=== PATIENT | male | born 1990 | race Caucasian/White ===

== ENCOUNTER 2017-11-23 20:26 | Emergency (ER) | payer SELFPAY ==
[~2017-11-23] VITALS: Ht 188 cm; Wt 68.2 kg
[2017-11-23 20:39] VITALS: BP 125/79; TEMP 97.8
[2017-11-23] MEDS ORDERED: CIPRODEX OT (21:44)
[2017-11-23 22:13] VITALS: PULSE 71
== END 2017-11-23 22:20 | disposition home or self-care (01) ==
LOC: COL.ER 20:26
DX: H60.91 Unspecified otitis externa, right ear (principal); F17.290 Nicotine dependence, other tobacco product, uncomplicated

== ENCOUNTER 2018-02-04 16:47 | Emergency (ER) | payer SELFPAY ==
[~2018-02-04] VITALS: Ht 185.4 cm; Wt 68.2 kg
[~2018-02-04 16:47] MED LIST: CIPRODEX OT
[2018-02-04 16:55] VITALS: BP 119/85; TEMP 97.8
[2018-02-04] MEDS ORDERED: ULTRAM 50MG TAB50 MG PO (17:47)
[2018-02-04 18:09] VITALS: PULSE 84
== END 2018-02-04 18:25 | disposition home or self-care (01) ==
LOC: COL.ER 16:47
DX: S43.52XA Sprain of left acromioclavicular joint, initial encounter (principal); W19.XXXA Unspecified fall, initial encounter; Y92.009 Unspecified place in unspecified non-institutional (private) residence as the place of occurrence of the external cause

== ENCOUNTER 2018-03-09 12:48 | Emergency (ER) | payer SELFPAY ==
[~2018-03-09] VITALS: Ht 180.3 cm; Wt 58.6 kg
[~2018-03-09 12:48] MED LIST changes: +ULTRAM 50MG TAB50 MG PO
[2018-03-09 12:52] VITALS: BP 113/79; TEMP 97.4
[2018-03-09] MEDS ORDERED: PREDNISONE20 MG PO (15:14)
[2018-03-09] MEDS ORDERED: ATARAX 25MG25 MG/TAB PO (15:15)
[2018-03-09 15:34] VITALS: PULSE 84
== END 2018-03-09 15:35 | disposition home or self-care (01) ==
LOC: COL.ER 12:48
DX: R21 Rash and other nonspecific skin eruption (principal); F17.210 Nicotine dependence, cigarettes, uncomplicated; Z96.22 Myringotomy tube(s) status
CPT/HCPCS: J7512

== ENCOUNTER 2018-03-11 22:55 | Emergency (ER) | payer SELFPAY ==
[~2018-03-11] VITALS: Ht 185.4 cm; Wt 63.6 kg
[~2018-03-11 22:55] MED LIST changes: +ATARAX 25MG25 MG/TAB PO; +PREDNISONE20 MG PO
[2018-03-11 23:01] VITALS: TEMP 97.3
[2018-03-12 00:17] LABS: BASO % 0.3 % (0.0-2.0); EOS # 0.1 (0.0-0.7); EOS % 1.1 % (0-4.0); GRAN # 3.1 (1.4-6.5); GRAN % 48.3 % (42.2-75.2); HEMATOCRIT 38.8 % (42.0-52.0); HEMOGLOBIN 13.6 g/dl (13.5-18.0); LYMPH # 2.1 (1.2-3.4); LYMPH % 32.9 % (20.0-51.0); MEAN CELL VOLUME 88 fl (80.0-100.0); MEAN CORPUSCULAR HEMOGLOBIN 31 pg (27.0-31.0); MEAN CORPUSCULAR HGB CONC 35 g/dl (33.0-37.0); MEAN PLATELET VOLUME 10.2 fl (7.4-10.4); MONO # 1.1 (0.1-0.6); MONO % 17.2 % (1.7-9.3); PLATELET COUNT 186 K/mm3 (130-400); RED BLOOD COUNT 4.41 M/mm3 (4.20-5.60); REDCELL DISTRIBUTION WIDTH-CV 11.9 % (11.5-14.5)
[2018-03-12 00:23] LABS: INR 1.1 (0.8-3.0)
[2018-03-12 00:25] LABS: PARTIAL THROMBOPLASTIN TIME 31.6 SECONDS (26.0-37.0)
[2018-03-12 00:32] LABS: ALANINE AMINOTRANSFERASE 15 U/L (21-72); ALBUMIN 4.4 gm/dL (3.5-5.0); ALKALINE PHOSPHATASE 59 U/L (50-136); ANION GAP 6 mmol/L (7-16); AST,SGOT 19 U/L (15-37); BILIRUBIN,TOTAL 0.2 mg/dL (0.0-1.0); BLOOD UREA NITROGEN 16 mg/dL (9-20); C-REACTIVE PROTEIN < 0.5 mg/dL (0.0-0.9); CALCIUM 9.4 mg/dL (8.4-10.2); CARBON DIOXIDE 32 mmol/L (22-30); CHLORIDE 101 mmol/L (98-107); CREATININE, serum 0.68 mg/dL (0.66-1.25); GLUCOSE 90 mg/dL (74-106); POTASSIUM 4.1 mmol/L (3.4-5.0); SODIUM 139 mmol/L (137-145); TOTAL PROTEIN 7.5 gm/dL (6.4-8.2)
[2018-03-12 00:34] LABS: COLLECTION METHOD CLEAN CATCH
[2018-03-12 00:50] LABS: MUCOUS Present /lpf; PH 5 (5-8); SQUAMOUS EPITHELIAL None Seen /hpf; URINE APPEARANCE Clear; URINE BACTERIA None Seen /hpf; URINE BILIRUBIN Negative (NEGATIVE); URINE BLOOD 1+ (NEGATIVE); URINE COLOR Yellow; URINE GLUCOSE Negative (NEGATIVE); URINE KETONE Negative (NEGATIVE); URINE LEUKOCYTE ESTERASE Negative (NEGATIVE); URINE NITRATE Negative (NEGATIVE); URINE PROTEIN(semi-quant) 2+ (NEGATIVE); URINE RBC 20-50 /hpf; URINE UROBILINOGEN Negative (NEGATIVE)
[2018-03-12 02:23] VITALS: BP 111/76; PULSE 64
== END 2018-03-12 02:26 | disposition home or self-care (01) ==
LOC: COL.ER 22:55
PROVIDERS: Emergency Medicine
DX: D69.0 Allergic purpura (principal); F17.210 Nicotine dependence, cigarettes, uncomplicated
CPT/HCPCS: J1200